=== PATIENT | male | born 1965 | race Caucasian/White ===

== ENCOUNTER 2022-07-04 00:23 | Day surgery (SDC) | payer OTHER, SELFPAY ==
[2022-06-23 14:34] VITALS: BMI 31.4
--- NOTE | 2022-06-23 14:41 | PC.NURSE ---
Report to the Outpatient Waiting Room, entrance under the green pavilion located off [facility], at 1100 on 07/04/22. Planned Procedure Time: 1300. Time changes happen often and if your time is changed the preop area will call you the afternoon before. - You and your visitor will be asked to self-screen and do not enter if you have any COVID symptoms. - Only one visitor is requested with a max of two and NO children visitors are allowed at this time. - The patient visitor may be requested to leave or wait in car when not with patient due to distancing restrictions. - A mask is optional within the hospital at this time. Patients may have clear liquids (water, carbonated beverages, clear teas, apple juice) until 3 hours prior to surgery with a maximum of 20 ounces. - No food from midnight until time of surgery Take the following medications with a SIP of water the morning of surgery: N/A DO NOT STOP ANY OF YOUR OTHER PRESCRIPTION MEDICATIONS PRIOR TO SURGERY ?EXCEPT THE FOLLOWING Medications to discontinue per physician N/A Date to take last dose N/A Please no make-up, nail divehi, hairspray, perfume, deodorant, or body powder the day of surgery. No jewelry (including any body piercings) or valuables the day of surgery, leave them at home. Please take a shower or bath the night before, or the morning of, surgery with an antibacterial soap. Wear comfortable, loose fitting clothing. - Jewelry must be removed prior to entering the operating room. Rings and piercings that are not removed may be cut off. - The hospital will not accept responsibility for valuables. - Please leave all valuables, including medications, at home the day of surgery. If you are going home after surgery, a licensed intermodal owner operator truck driver must drive you home. - NO public transportation without another adult if you receive anesthesia. - We recommend that an adult stay with you for 24 hours following discharge. - We also recommend that you do not drive, make important decision, drink alcoholic beverages, or take any drugs that were not prescribed by your health care provider for at least 24 hours after your discharge time. Follow any additional instructions given to you from your surgeon. If you or anyone in your household have experienced Covid symptoms in the past week, please notify your surgeon or the nurse liaison at the phone number below for possible testing. Telephone instructions given to patient and asked if any additional questions and then verbalized understanding. Patient advised to call surgeon office or pre surgery nurse liaison [phone] if any additional questions.
--- NOTE | 2022-07-03 15:54 | SUR.PREOP ---
1550 pt notified of time change, told to be here at 1100.
[2022-07-04] VITALS (10 sets, daily range): BP systolic 98–129; BP diastolic 62–86; PULSE 65–78; RESP 12–18; TEMP 36.2–36.7; O2SAT 92–99
[2022-07-04] MEDS: LACTATED RINGERS 1,000 ML 30 ML IV CONT ×2 (11:52→14:32)
[2022-07-04 12:08] LABS: Urine Cotinine NEGATIVE
--- NOTE | 2022-07-04 12:42 | W.PM.PROC2 ---
Procedure Note - Detailed Date of Procedure 07/04/22 Pre-op Diagnosis Gynecomastia Post-op Diagnosis Same Procedure Performed Reduction of Gynecomastia Surgeon Ming Asencio MD Anesthesia General Findings Lipoaspirate 1,000 cc Description of Procedure He is here today for the above procedure. Previously and again today the risks, benefits, alternatives were discussed in extensive detail. I wanted him to be very realistic about the risks involved as well as expectations. We discussed aftercare and what to monitor for. He previously had this treated in two separate events because he was very concerned of too much change at once and people would notice. He now states he would like to proceed with additional treatment and is not concerned like he was before. He has had the gland removed in the past and wants to proceed with suction lipectomy. Discussed realistic expectations of outcome. He does want to stay overnight as he doesn't have care available post-op. Made sure I answered all of questions to satisfaction today and consent was obtained. He was marked in the preoperative holding area with his verification. The patient was taken to the operating room placed supine on the operating table. Anesthesia was provided by anesthesiology. Prepped and draped in a standard sterile fashion. A surgical time-out was taken. Stab incisions were made and I tumesced with a tumescent solution. Suction lipectomy based on S.A.F.E. technique using a 5mm basket cannula. This was in multiple planes and passes and based on pre-operative planning, intraoperative observation, and rolling pinch test which was in full agreement. He was placed in a sitting position to verify final contour. Port sites closed with 4-0 Nylon. Dressing was placed. Patient was awoke and taken to PACU without difficulty. All instrument and sponge counts were correct at the end of the case. Estimated Blood Loss 20 Drains No Packing No Pathology None sent Complications No immediate complications Condition Stable Disposition PACU
--- NOTE | 2022-07-04 12:47 | WPDHPUPDATE1 ---
History and Physical Update Update Date/Time: 07/04/22 12:47 History and Physical has been reviewed, including an updated exam of the patient. There are NO changes in the patient's condition. Risks, benefits, and alternatives have been discussed and questions answered. Patient agrees to proceed with procedure.
--- NOTE | 2022-07-04 13:00 | WPDANESEPPF ---
Anes - Initial Pre Proc Eval Procedure: Operation Date: 07/04/22 13:00 Proposed Procedures p Reduction Gynecomastia - Ming Asencio MD Date/Time: 07/04/22 13:00 Surgeon: Ming Asencio MD Pre Op Diagnosis: Gynecomastia Patient Data Age: 56 Gender: M Height: 1.8 m Weight: 107 kg Last Vital Signs Temp 97.6 F 07/04/22 11:21 Pulse 72 07/04/22 11:21 Resp 18 07/04/22 11:21 BP 129/71 07/04/22 11:21 Pulse Ox 98 07/04/22 11:21 O2 Del Method Room Air 07/04/22 11:21 Allergies Allergy/AdvReac Type Severity Reaction Status Date / Time No Known Allergies Allergy Verified 07/04/22 11:34 Home Medications Medication Instructions Recorded Confirmed Type No Home Medications 06/23/22 07/04/22 History Laboratory Tests 07/04/22 11:17 Cotinine Negative Patient hx anesthesia problems: none Family hx anesthesia problems: none Results Review: All pre-operative results and documents have been reviewed as part of the pre-operative evaluation. [facility] Social History Social History Smoking status: Never smoker Second hand tobacco smoke exposure: No Alcohol intake: never Substance use: never Living arrangements: with family Spiritual care concerns: No Anes - Eval Final PreProcedure Day of Procedure 07/04/22 13:00 Patient weight: obese Heart: regular rate and rhythm Lungs: clear to auscultation Airway: Mallampati scale class II Neurological: alert and oriented Last oral intake: >/= 8 hours ASA classification: II Emergent: no Anesthetic plan: proceed Anesthesia type and monitoring: general LMA and standard monitoring Results Review: All pre-operative results and documents have been reviewed as part of the pre-operative evaluation. Informed Consent: The patient's anesthetic plan and its attendant risks and benefits were discussed with the patient/family/POA. Questions were solicited and answers provided to the satisfaction of the patient/family/POA.
[2022-07-04] MEDS: ceFAZolin 2 GM/D5W 50 ML 2 GM/50 ML BAG IVPB (13:07)
[2022-07-04] MEDS: TRANEXAMIC ACID 1,000MG/ISO100 1,000 MG/100 ML BAG 200 MG IVPB (13:17)
[2022-07-04] MEDS: LACTATED RINGERS IRRIG 1,000 ML, LIDOCAINE HCL 1% LOCAL INJ 50 ML, EPINEPHrine HCL INJ ... INFILTRATE (13:27)
[2022-07-04] MEDS: LACTATED RINGERS 1,000 ML 125 ML IV CONT (15:54)
[2022-07-04] MEDS: DOCUSATE SODIUM 100 MG CAPSULE PO (20:18)
[2022-07-04] MEDS: oxyCODONE/ACETAMINOPHEN (*CRX) 5-325 MG TABLET PO (20:19)
[2022-07-05 00:49] VITALS: BP 102/65; PULSE 72; RESP 20; TEMP 36.4; O2SAT 94
[2022-07-05 04:49] VITALS: BP 102/65; PULSE 72; RESP 20; TEMP 36.4; O2SAT 94
--- NOTE | 2022-07-05 06:41 | WPDPN ---
Progress Note: A&P Assessment and Plan (1) Gynecomastia: Code(s): N62 - Hypertrophy of breast Status: Acute Assessment and Plan: Doing well after treatment of gynecomastia. Will discharge home. Today we had a lengthy discussion about the care. What to monitor for. We discussed activity limitations. This was a lengthy open-ended conversation making sure I answered all questions. We discussed what is an emergency and when to proceed to the ER / dial 911. Call with all other questions or concerns. Voiced a clear understanding. I will see them back. Subjective Date/time seen: 07/05/22 06:41 Interval history: He is doing very well after treatment of gynecomastia. Says his pain is controlled. No fevers or chills. No nausea vomiting. No shortness of breath. No chest pain. No calf tenderness. Review of Systems Review of Systems: All systems reviewed & are unremarkable except as noted in HPI and below Exam Narrative: Alert & Oriented NOD Respiratory unlabored Chest healing well. No signs of infection. No hematoma. No seroma. Good color / cap refill. No calf tenderness. Negative Radha's Objective Data Vital Signs Vital Signs: Vital Signs - 24 hr 07/04/22 11:21 07/04/22 14:35 07/04/22 14:50 Temperature 36.4 C 36.7 C Pulse Rate 72 78 72 Respiratory Rate 18 16 12 Blood Pressure 129/71 119/86 110/80 Pulse Oximetry 98 98 99 Oxygen Delivery Room Air Simple Face Mask Simple Face Mask Oxygen Flow Rate 8 8 07/04/22 15:05 07/04/22 15:20 07/04/22 15:50 Temperature Pulse Rate 74 69 Respiratory Rate 12 12 Blood Pressure 100/71 101/68 Pulse Oximetry 93 92 Oxygen Delivery Room Air Room Air Room Air Oxygen Flow Rate 07/04/22 15:40 07/04/22 15:55 07/04/22 16:25 Temperature 36.5 C 36.2 C L 36.3 C L Pulse Rate 69 65 69 Respiratory Rate 18 18 18 Blood Pressure 98/63 L 101/62 102/67 Pulse Oximetry 92 95 94 Oxygen Delivery Oxygen Flow Rate 07/04/22 17:25 07/04/22 20:49 07/05/22 00:49 Temperature 36.3 C L 36.2 C L 36.4 C Pulse Rate 75 75 72 Respiratory Rate 18 18 20 Blood Pressure 105/67 124/79 102/65 Pulse Oximetry 96 96 94 Oxygen Delivery Oxygen Flow Rate 07/05/22 04:49 Temperature 36.4 C Pulse Rate 72 Respiratory Rate 20 Blood Pressure 102/65 Pulse Oximetry 94 Oxygen Delivery Oxygen Flow Rate Intake/Output Intake/Output: Intake & Output 07/02/22 07/03/22 07/04/22 07/05/22 23:59 23:59 23:59 23:59 Intake Total 1874 Balance 1874 Meds/Results Medications: Active Medications Generic Name Dose Route Start Last Admin Trade Name Freq PRN Reason Stop Dose Admin Docusate Sodium 100 mg 07/04/22 21:00 07/04/22 20:18 Docusate Sodium 100 Mg Capsule PO 100 mg Q12HR MATEO Administration Ketorolac Tromethamine 15 mg 07/04/22 14:23 Ketorolac 15 Mg/Ml Vial (*Bkc) IV PUSH Q6H PRN Pain Rated 4-6 Morphine Sulfate 2 mg 07/04/22 14:23 Morphine Sulfate (*Crx) 2 Mg/Ml Inj IV PUSH Q2H PRN Pain Ondansetron HCl 4 mg 07/04/22 14:23 Ondansetron Inj 4 Mg/2 Ml Vial IV PUSH Q6H PRN Nausea Oxycodone/Acetaminophen 1 - 2 tablet 07/04/22 14:23 07/04/22 20:19 Oxycodone/Acetaminophen (*Crx) 5-325 Mg Tablet PO 2 tablet Q6H PRN Administration Pain Labs Labs: Laboratory Results - last 24 hr 07/04/22 11:17 Cotinine Negative
--- NOTE | 2022-07-05 06:46 | P.DS_ITS ---
DS: Admitting Diagnosis Discharge Date 07/05/2022 Admitting Diagnosis Gynecomastia DS: Discharge Diagnosis Discharge Diagnosis (1) Gynecomastia: Code(s): N62 - Hypertrophy of breast Status: Acute DS: Summary Hospital Course Hospital Course: Underwent treatment of gynecomastia. Postoperatively has done well. Will discharge home. Follow-up. Time Spent with Patient Time attestation: Total time spent providing and/or coordinating discharge services: Exam Narrative: Alert & Oriented NOD Respiratory unlabored Chest healing well. No signs of infection. No hematoma. No seroma. Good color / cap refill. No calf tenderness. Negative Radha's DS: Data Data Completed and Pending Labs on day of discharge: Labs from last 24 hours 07/04/22 11:17 Cotinine Negative Discharge Plan Discharge Patient Disposition: Home, Self-Care Discharge Instructions: POST OPERATIVE DISCHARGE INSTRUCTIONS MING ASENCIO M.D[facility] [address] [place] [address] * No driving for 24 hours after anesthesia and while you are taking pain medication. * Take all prescribed medication as directed * Diet as tolerated. * No lifting or activity that raises blood pressure for 48 hours. * Regular walking / ambulation. * No showering until directed to. Once you shower do not take pain medication before showering as the combination of medication and heat may cause you to feel dizzy or pass out. * No pools or tubs for 2 weeks. * Call with any questions or concerns. * Dressing Care: Continue compression 23 hours per day. If you have any questions or concerns, please call the office . If it is after hours you will be directed to the pulmonary specialist exchange. Shortness of breath, chest pain, or other medical emergency dial 911 / proceed to the Emergency Room. Stand Alone Forms: General Discharge Instructions Follow-up/Referrals: Ming Asencio MD [Physician] - 1 Week Discharge Medications: No Action No Home Medications
== END 2022-07-05 07:35 | disposition home or self-care (01) ==
LOC: ANHSURGERY 12:46 → ANH2MED 15:32
PROVIDERS: Visit Provider Surgery Plastic and Reconstructive Surgery
PROC: (CPT 19300; principal; 2022-07-04 13:00)
DX: N62 Hypertrophy of breast (principal); E66.9 Obesity, unspecified; Z68.32 Body mass index [BMI] 32.0-32.9, adult
CPT/HCPCS: 19300; 80307; A9270; J0171; J0690; J1170; J2250; J3010; J7120

== ENCOUNTER 2023-02-06 01:20 | Day surgery (SDC) | payer OTHER, SELFPAY ==
[2023-01-29 11:16] VITALS: BMI 32.1
--- NOTE | 2023-01-29 11:19 | PC.NURSE ---
Report to the Outpatient Waiting Room, entrance under the green pavilion located off [facility], at time 0600 on date 02/06/23. Planned Procedure Time: 0730. Time changes happen often and if your time is changed the preop area will call you the afternoon before. - You and your visitor will be asked to self-screen and do not enter if you have any COVID symptoms. - A mask is optional within the hospital at this time. Patients may have clear liquids (water, carbonated beverages, clear teas, apple juice) until 3 hours prior to surgery with a maximum of 20 ounces. - No food from midnight until time of surgery Take the following medications with a SIP of water the morning of surgery: NONE DO NOT STOP ANY OF YOUR OTHER PRESCRIPTION MEDICATIONS PRIOR TO SURGERY ?EXCEPT THE FOLLOWING Medications to discontinue per physician: N/A Date to take last dose: N/A Please no make-up, nail tamazight, hairspray, perfume, deodorant, or body powder the day of surgery. No jewelry (including any body piercings) or valuables the day of surgery, leave them at home. Please take a shower or bath the night before, or the morning of, surgery with an antibacterial soap. Wear comfortable, loose fitting clothing. - Jewelry must be removed prior to entering the operating room. Rings and piercings that are not removed may be cut off. - The hospital will not accept responsibility for valuables. - Please leave all valuables, including medications, at home the day of surgery. If you are going home after surgery, a licensed show horse driver must drive you home. - NO public transportation without another adult if you receive anesthesia. - We recommend that an adult stay with you for 24 hours following discharge. - We also recommend that you do not drive, make important decision, drink alcoholic beverages, or take any drugs that were not prescribed by your health care provider for at least 24 hours after your discharge time. Follow any additional instructions given to you from your surgeon. If you or anyone in your household have experienced Covid symptoms in the past week, please notify your surgeon or the nurse liaison at the phone number below for possible testing. Telephone instructions given to PT - BROCK ESCALANTE and asked if any additional questions and then verbalized understanding. Patient advised to call surgeon office or pre surgery nurse liaison [phone] if any additional questions.
--- NOTE | 2023-02-05 14:54 | WPDANESEPPF ---
Anes - Initial Pre Proc Eval Procedure: Operation Date: 02/06/23 07:30 Proposed Procedures p Excision Right Gynecomastia with Liposuction - Ming Asencio MD Date/Time: 02/05/23 14:54 Surgeon: Ming Asencio MD Pre Op Diagnosis: gynecomastia Patient Data Age: 57 Gender: M Height: 1.8 m Weight: 104.35 kg Allergies Allergy/AdvReac Type Severity Reaction Status Date / Time No Known Allergies Allergy Verified 02/06/23 07:14 Home Medications Medication Instructions Recorded Confirmed Type atorvastatin 40 mg tablet 40 mg PO DAILY 01/29/23 02/06/23 History Patient hx anesthesia problems: none Family hx anesthesia problems: none Results Review: All pre-operative results and documents have been reviewed as part of the pre-operative evaluation. [facility] Social History Social History Smoking status: Never smoker Second hand tobacco smoke exposure: No Alcohol intake: current Drinks per week: 4 Substance use: never Substance use type: does not use Lack of Transportation: No Lack of Food: Never True Current Housing: I Have Housing Concerned About Future Housing: No Difficulty Paying Gas/Electric Bills: No Difficulty Paying for Meds: No Currently Unemployed: No Education: Bachelor's Degree Difficulty w/ Childcare or Family Care: No Living arrangements: with family Spiritual care concerns: No Anes - Eval Final PreProcedure Day of Procedure 02/05/23 14:54 Patient weight: obese Heart: regular rate and rhythm Lungs: clear to auscultation Airway: Mallampati scale class III Neurological: alert and oriented Last oral intake: >/= 8 hours ASA classification: II Emergent: no Anesthetic plan: proceed Anesthesia type and monitoring: general LMA and standard monitoring Results Review: All pre-operative results and documents have been reviewed as part of the pre-operative evaluation. Informed Consent: The patient's anesthetic plan and its attendant risks and benefits were discussed with the patient/family/POA. Questions were solicited and answers provided to the satisfaction of the patient/family/POA.
--- NOTE | 2023-02-06 06:01 | ECG_ITS ---
Measurements Intervals [place] Rate: 79 P: -5 OR: 217 QRS: -3 QRSD: 95 T: 32 QT: 374 QTc: 430 Interpretive Statements SINUS RHYTHM WITH FIRST DEGREE AV BLOCK NO PREVIOUS ECG AVAILABLE FOR COMPARISON Electronically Signed On 02-06-2023 12:21:10 CDT by Lacho Garcia M.D.
[2023-02-06 06:25] VITALS: BP 113/86; PULSE 79; RESP 16; TEMP 36.1; O2SAT 96
[2023-02-06] MEDS: LACTATED RINGERS 1,000 ML 30 ML IV CONT ×2 (06:42→10:31)
[2023-02-06 06:45] LABS: Urine Cotinine NEGATIVE
--- NOTE | 2023-02-06 07:05 | P.OP_ITS ---
Procedure Note - Detailed Date of Procedure 02/06/23 Pre-op Diagnosis gynecomastia Post-op Diagnosis Same Procedure Performed Excision gynecomastia right chest Surgeon Ming Asencio MD Anesthesia General Indications Very pleasant 57 year old male who elected to have minimal treatment of gynecomastia during his first procedure leaving some residual at his request to make this less noticeable. He has subsequently returned requesting more several times each in a stepwise fashion at his request understanding the risks of doing so. He is now happy with his left; however, feels there is too much fullness of his right. He would like to proceed with additional treatment of right side. We had a lengthy discussion about the complexity and limitations of his procedure especially given his request for stepwise treatment which leaves scar tissue further complicating his outcome and he understands we may never be able to get symmetry given his requests. Risks, benefits, alternatives discussed and he voiced a clear understanding. Consent obtained. Findings Significant scar tissue right chest. Lipoaspirate 100 cc Description of Procedure He was marked in the preoperative holding area with his verification. The patient was taken to the operating room placed supine on the operating table. Anesthesia was provided by anesthesiology. Prepped and draped in a standard sterile fashion. A surgical time-out was taken. Stab incisions were made and I tumesced with a tumescent solution. On the right a 15 blade was used to make an inferior areolar incision and dissection continued until the gland / scar tissue was identified. I elevated flaps with facelift scissors for planned resection with significant adipose tissue being left on the flap to help maintain contour.. Elevated residual gland / scar tissue leaving tissue on the pectoralis fascia to maintain contour. This was excised. Irrigated copiously with saline solution and verified a strict hemostasis. This was tailor tacked into place. I then proceeded with suction lipectomy based on S.A.F.E. technique using a 5mm basket cannula. This was in multiple planes and passes and based on pre- operative planning, intraoperative observation, and rolling pinch test which was in full agreement. He was placed in a sitting position to verify final contour. Incision was closed with 2-0 Vicryl, 3-0 Monocryl, and running subcuticular 4-0 Monocryl. Port sites closed with 4-0 Nylon. Dressing was placed. Patient was awoke and taken to PACU without difficulty. All instrument and sponge counts were correct at the end of the case. Estimated Blood Loss 20 Drains No Packing No Pathology None sent Complications No immediate complications Condition Stable Disposition PACU
--- NOTE | 2023-02-06 07:05 | WPDHPUPDATE1 ---
History and Physical Update Update Date/Time: 02/06/23 07:05 History and Physical has been reviewed, including an updated exam of the patient. There are NO changes in the patient's condition. Risks, benefits, and alternatives have been discussed and questions answered. Patient agrees to proceed with procedure.
--- NOTE | 2023-02-06 08:24 | SUR.PREOP ---
3334 PT MADE AWARE OF SURGERY TIME DELAY D/T SURGEON MEETING
[2023-02-06] MEDS: ceFAZolin 2 GM/D5W 50 ML 2 GM/50 ML BAG IVPB (08:47)
[2023-02-06] MEDS: TRANEXAMIC ACID 1,000MG/ISO100 1,000 MG/100 ML BAG 200 MG IVPB (08:47)
[2023-02-06] MEDS: LACTATED RINGERS IRRIG 1,000 ML, LIDOCAINE HCL 1% LOCAL INJ 50 ML, EPINEPHrine HCL INJ ... INFILTRATE (08:47)
[2023-02-06 10:31] VITALS: BP 137/91; PULSE 78; RESP 12; TEMP 36.6; O2SAT 98
[2023-02-06 10:45] VITALS: BP 124/88; PULSE 76; RESP 16; O2SAT 99
[2023-02-06 11:00] VITALS: BP 121/86; PULSE 79; RESP 16; O2SAT 95
[2023-02-06 11:16] VITALS: BP 122/84; PULSE 72
[2023-02-06 11:45] VITALS: BP 120/70; PULSE 67; RESP 16
--- NOTE | 2023-02-06 12:17 | SUR.PHASEII ---
1210 PT MEETS ANESTHESIA DISCHARGE CRITERIA. PT DRESSED & WAITING ON RIDE TO ARRIVE.
== END 2023-02-06 12:20 | disposition home or self-care (01) ==
PROVIDERS: Visit Provider Surgery Plastic and Reconstructive Surgery
PROC: (CPT 19300; principal; 2023-02-06 07:30)
DX: N62 Hypertrophy of breast (principal); E66.9 Obesity, unspecified; Z68.33 Body mass index [BMI] 33.0-33.9, adult
CPT/HCPCS: 19300; 15877; 80307; 93005; J0171; J0690; J1100; J2250; J2405; J2704; J3010; J7120